=== PATIENT | male | born 1965 | race Caucasian/White ===

== ENCOUNTER 2017-01-22 09:07 | Day surgery (SDC) | payer OTHER ==
[~2017-01-22] VITALS: Ht 172.7 cm; Wt 95.0 kg
[2017-01-22] VITALS (12 sets, daily range): BP systolic 116–181; BP diastolic 55–102; PULSE 49–86; RESP 12–25; O2SAT 95–100
--- NOTE | 2017-01-22 06:40 | PCM.HPANE ---
Patient Data Surgeon Admitting Provider: Attending Provider:Francisco Valdes DO Primary Care Physician:Amber Other Provider: Reason for Visit Left Knee Derangement Ht/WT & BMI Height (Feet): 5 Height (Inches): 8 Weight (Kilograms): 97.34 Body Mass Index 32.00 Allergies Coded Allergies: No Known Allergies (Unverified , 08/07/16) Past Anesthesia History Anesthesia History: Denies:: Anesthesia Reactions Diabetes History Hx Diabetes?: No MRSA MRSA: No Medications Hypertension Medication: Yes Home Meds Incl Beta Rebeca: No Reported Medications oxyCODONE-Acetaminophen 5-325 mg 1 Each Tablet1-2 Tab PO Q4H PRN For Pain Ref 0 01/15/17 Lisinopril 10 Mg [id number] Mg PO DAILY 30 Days Ref 0 01/15/17 Discontinued Scripts Lisinopril 5 Mg [id number] Mg PO DAILY #60 TABLET Prov:Del Solomon MD 08/10/16 Enoxaparin Sodium 40 Mg/0.4 Ml [id number] Mg SUBQ Q24 #18 Prov:Del Solomon MD 08/10/16 History History of ENT Problems?: No HEENT History: Denies:: Abnormal Airway Cataracts Difficult Intubation Dysphagia Glaucoma Hearing Problem Sinus Problem TMJ Denture Type: None Teeth Condition: Within Normal Limits Hx of Heart Problems?: Yes Cardiovascular History: Positive for:: Hypertension Denies:: AICD Congestive Heart Failure Heart Murmur Irregular Heartbeat Pacemaker Hx of Respiratory Problem?: No Respiratory History: Denies:: Asthma COPD Emphysema Oxygen Administration Tuberculosis Use of C-PAP Machine Hx Neurologic Problems?: No Neurological History: Denies:: CVA Headaches Multiple Sclerosis Parkinson's Disease Seizures Hx of GI Problems?: Yes Hx of Problems?: No Genitourinary History: Denies:: Kidney Stones Urinary Tract Infection Male Hx: Denies:: Prostate Problems Skin History: Positive for:: History Skin Disorders? (hx of shingles) Denies:: Pressure Ulcers Hx Musculoskeletal Problems?: Yes Musculoskeletal History: Positive for:: Back Injury (broken as teenager, no surgery) Musculoskeletal Trauma (left knee ORIF 08/2016- continuing pain current admission problem) Hx of Psycho/Social Problems?: No Psycho Social History: Denies:: Suicide Attempt Hx Surgeries?: Yes (appe, ORIF left femur) Hx Any Other Health Problems?: Yes Other History: Denies:: Cancer Thyroid Disease History Blood Transfusions: Denies:: Blood Transfuse Reaction Blood Transfusions Hx Diabetes: No Hx Alcohol Use: Yes ("at least one drink a day")Hx Substance Use: No Smoking Status: Current Every Day Smoker Have You Smoked inLast 12 mo: YesApprox How Many Cigarettes/day: pack Stop/Bang P-Blood Pressure: treated: Yes B- Body Mass Index > 35 kg/m2: No A- Age over 50: Yes N- Neck Large Circumference: No G- Gender Male: Yes NHUNG Risk Assessment: Low Risk, <3 Yes Risk Assessment Category Category 1A: Patient has history of documented sleep apnea, and HAS NOT received any narcotic, sedative or anesthesia administration during this stay. Category 1B: Patient has history of documented sleep apnea, and HAS received any narcotic , sedative or anesthesia administration during this stay Category 2: Patient has SUSPECTED Obstructive Sleep Apnea, and HAS received any narcotic , sedative or anesthesia administration during this stay. Category 3: Patient has SUSPECTED Obstructive Sleep Apnea and HAS NOT received narcotic, sedative or anesthesia administration during this stay. Category 4: Outpatient in Procedural Areas with known sleep apnea or who screen positive for High Risk via the STOP/BANG questionnaire. Exam Exam General Appearance: Alert, Oriented X3, Cooperative, No Acute Distress HEENT/AIRWAY: MP 2 Lungs: Clear to Auscultation, Normal Air Movement Heart: Exam Unremarkable, Regular Rate/Rhythm, No Murmurs/Rubs/Gallops Plan Impression Patient chart reviewed, patient interviewed and anesthestic plan with risks, benefits, and alternatives discussed, and informed consent obtained. ASA Physical Status: ASA2 Mod Systemic Disease Anesthetic Plan: GA Bene/Risks/Altern/Consents: Yes HP Complete Prior to Induction: Yes Lary Maharaj MD January 22, 2017 06:40
[~2017-01-22 09:07] MED LIST: CeFAZolin Inj 2 GM in IV Premix 1 EACH IV ONE; LISI10TA PO; OXYC1TAB24 PO
[2017-01-22] MEDS ORDERED: fentaNYL-PF 50 mCg/mL 2 mL Inj ONE (09:08)
[2017-01-22] MEDS ORDERED: Propofol 10,000 mCg/mL 20 mL Inj ONE (09:08)
[2017-01-22] MEDS ORDERED: Dexamethasone 4 mg/mL Inj ONE (09:08)
[2017-01-22] MEDS ORDERED: Ondansetron 2 mg/mL 2 mL Inj ONE (09:08)
[2017-01-22] MEDS ORDERED: CeFAZolin Inj 2 gm / 50mL D5W IV ONE (09:47)
[2017-01-22] MEDS: Lactated Ringer's 1,000 ML IV SCH ×2 (10:10→10:30)
[2017-01-22] MEDS ORDERED: Lidocaine 2%-Epi 1:100,000 20 mL Inj INFILTRATE ONE (11:07)
[2017-01-22] MEDS ORDERED: Ropivacaine-PF 0.5% 30 mL Inj INFILTRATE ONE (11:23)
[2017-01-22] MEDS ORDERED: Phenylephrine 10,000 mCg/mL Inj IVPUSH PRN (11:25)
[2017-01-22] MEDS ORDERED: Dexamethasone 4 mg/mL Inj IVPUSH PRN (11:25)
[2017-01-22] MEDS ORDERED: Lactated Ringer's 500 ML IV PRN (11:25)
[2017-01-22] MEDS ORDERED: Labetalol 5 mg/mL 4 mL Inj IV PRN (11:25)
[2017-01-22] MEDS ORDERED: Ondansetron 2 mg/mL 2 mL Inj IVPUSH PRN (11:25)
[2017-01-22] MEDS ORDERED: fentaNYL-PF 50 mCg/mL 2 mL Inj IVPUSH PRN (11:25)
[2017-01-22] MEDS ORDERED: Atropine 0.4 mg/mL Inj IVPUSH PRN (11:25)
[2017-01-22] MEDS ORDERED: MetoCLOpramide 5 mg/mL 2 mL Inj IVPUSH PRN (11:25)
[2017-01-22] MEDS ORDERED: EPHEDrine Sulfate 50 mg/mL Inj IVPUSH PRN (11:25)
[2017-01-22] MEDS ORDERED: HYDROmorphone 1 mg/mL Inj IVPUSH PRN (11:25)
[2017-01-22] MEDS ORDERED: Lactated Ringer's 1,000 ML IV SCH (11:25)
[2017-01-22] MEDS ORDERED: Ketorolac 15 mg/mL Inj IVPUSH ONE (11:55)
[2017-01-22] MEDS ORDERED: oxyCODONE-Acetamin 5-325 mg Tablet PO PRN (11:55)
--- NOTE | 2017-01-22 12:09 | PCM.ANEP1 ---
Post Anesthesia PACU Phase 1 Assessment Vital Signs Vital Signs Date Time Temp Pulse Resp B/P Pulse Ox O2 Delivery O2 Flow Rate FiO2 01/22/17 12:00 81 14 171/91 99 Room Air 01/22/17 11:55 84 16 164/102 99 Room Air 01/22/17 11:50 86 12 181/99 100 Room Air 01/22/17 11:46 36.3 162/97 100 Simple Mask 10 01/22/17 09:35 35.9 85 15 154/85 97 Room Air Anesthetic Administered: GA Level of Alertness: Awake, talking SMITH's with Equal Strength: Yes Pain: No Nausea or Vomiting: No CV Function and Hydration: No Airway Device: Oxygen Delivery: Simple Mask Lungs: Clear to Auscultation, Normal Air Movement PACU Phase 2 Assessment Complications: No Follow up Care: No Patient Instructions Provided: N/A Lary Maharaj MD January 22, 2017 12:08
--- NOTE | 2017-01-22 13:29 | OP ---
[address] [address] OPERATIVE REPORT PATIENT: RADHA BRONSON : 1965 MR#: [id number] ADMIT: 01/22/2017 JOB ID: [id number] DATE OF SURGERY: 01/22/2017 SURGEON: Francisco Valdes DO. PREOPERATIVE DIAGNOSIS(ES): Left knee adhesions and possible torn medial meniscus after distal femur fracture. POSTOPERATIVE DIAGNOSIS(ES): Left knee torn medial meniscus with extensive adhesions, status post left distal femur fracture open reduction and internal fixation. ANESTHESIA: General. PROCEDURE: Left knee video arthroscopy with partial medial meniscectomy and extensive intra-articular debridement of adhesions/extensive synovectomy. INDICATIONS: The patient is a 51-year-old male who underwent a left distal femur open reduction and internal fixation, August 08, 2016. Had been doing fairly well but has been having a difficult time regaining his range of motion. Has crepitus in the knee and pain, and we discussed a knee arthroscopy to hopefully remove scar tissue adhesions and improve his function and range of motion. We discussed the risks, benefits, and possible complications of surgery. All questions were answered and the patient wished to proceed. PROCEDURE IN DETAIL: Patient is brought to the operating room. He was given LMA general anesthetic and the left lower extremity was sterilely prepped and draped. An incision was made over the anterolateral knee at the level of the joint line. The blunt trocar was introduced. Inspection was undertaken. His articular surface was in excellent condition. In the medial compartment, he did have a tear in the posterior horn, medial meniscus. Medial portal was established and this was taken back to a stable base with a shaver. His ACL was found to be intact. He had extensive synovitis and fibrous tissue over the notch which was resected. He also had extensive fibrous tissue in the superior recess and lateral gutter. These were resected with the shaver. The lateral compartment articular surface was in excellent condition. His lateral meniscus was also intact and I was able to re-establish the gutters medially and laterally and reestablish the suprapatellar pouch, which had been previously very restricted due to scar tissue and thus improve his range of motion in the knee. Scope was then removed. The portals were closed with interrupted nylon sutures. Sterile dressings were applied. Patient tolerated the procedure well. Blood loss was minimal. POSTOPERATIVE PROTOCOL: Have the patient weightbear to tolerance. Begin working on range of motion right away. Ice and elevate and follow up in two weeks or sooner if needed. He was given a prescription for Percocet for pain.
== END 2017-01-22 23:59 | disposition home or self-care (01) ==
LOC: SAS 09:07
PROVIDERS: ATTEND Orthopaedic Surgery
DX: S83.242D Other tear of medial meniscus, current injury, left knee, subsequent encounter (principal); M65.862 Other synovitis and tenosynovitis, left lower leg; L90.5 Scar conditions and fibrosis of skin; I10 Essential (primary) hypertension; F17.210 Nicotine dependence, cigarettes, uncomplicated; V89.9XXD Person injured in unspecified vehicle accident, subsequent encounter; Y92.9 Unspecified place or not applicable; Z87.81 Personal history of (healed) traumatic fracture
CPT/HCPCS: 29881; J0690; J1100; J2250; J2405; J2795; J3010; J7120